=== PATIENT | female | born 1960 | race Caucasian/White ===

== ENCOUNTER 2016-07-07 15:37 | Emergency (ER) | payer MEDICARE ==
[2016-07-07 17:13] LABS: RED BLOOD COUNT 4.84 M/UL (4.00-5.10); WHITE BLOOD COUNT 11.2 K/UL (4.5-11.0)
[2016-07-07 17:32] LABS: BUN/CREATININE RATIO 10 (0-10)
== END 2016-07-07 22:00 | disposition home or self-care (01) ==
LOC: ER1 15:37
PROVIDERS: Physician Assistant
DX: K59.00 Constipation, unspecified (principal); E11.9 Type 2 diabetes mellitus without complications; J44.9 Chronic obstructive pulmonary disease, unspecified; I10 Essential (primary) hypertension; Z88.0 Allergy status to penicillin; Z88.2 Allergy status to sulfonamides; Z88.6 Allergy status to analgesic agent
CPT/HCPCS: 36415; 80053; 81001; 82150; 83605; 83690; 85025; 96360; 99284; J7050; Q9962

== ENCOUNTER → 2016-08-05 | Outpatient (CLI) | payer MEDICARE ==
[2016-08-05 14:06] LABS: HEMOGLOBIN 15.4 gm/dl (12.3-15.3); RED BLOOD COUNT 5.07 M/UL (4.00-5.10); WHITE BLOOD COUNT 8.6 K/UL (4.5-11.0)
[2016-08-05 14:28] LABS: BUN/CREATININE RATIO 11 (0-10)
== END ==
LOC: LAB 12:27
PROVIDERS: Family Medicine
DX: Z13.828 Encounter for screening for other musculoskeletal disorder (principal); E11.65 Type 2 diabetes mellitus with hyperglycemia; E78.5 Hyperlipidemia, unspecified; I10 Essential (primary) hypertension; K43.9 Ventral hernia without obstruction or gangrene; Z13.89 Encounter for screening for other disorder
CPT/HCPCS: 36415; 80053; 80061; 82043; 83036; 84439; 84443; 84550; 84681; 85027; 86039; 86200; 86431

== ENCOUNTER → 2016-08-18 | Outpatient (CLI) | payer MEDICARE | LOC: US 14:00 | DX: Z12.31 Encounter for screening mammogram for malignant neoplasm of breast (principal); I73.9 Peripheral vascular disease, unspecified; I74.3 Embolism and thrombosis of arteries of the lower extremities; Z78.0 Asymptomatic menopausal state; Z80.3 Family history of malignant neoplasm of breast | CPT/HCPCS: 93925; G0202 ==

== ENCOUNTER → 2020-03-06 | Outpatient (CLI) | payer OTHER ==
[~2020-03-06] MED LIST: AZITHROMYCIN250 MG PO; CILOSTAZOL50 MG PO; CLOPIDOGREL75 MG PO; COLACE 100MG C100 MG PO; CYCLOBENZAPRINE10 MG PO; ECOTRIN325 MG PO; FLONASE ALLER15.8 ML; ISOSORBIDE MONO30 MG PO; LIPITOR TAB 2020 MG PO; MIRALAX17 GM PO; MONTELUKAST SOD10 MG PO; NEURONTIN 100100 MG PO; NORCO 5-325 TA1 EACH PO; NYSTATIN15 GM TD; OMNICEF 300 MG300 MG PO; PANTOPRAZOLE SO40 MG PO; TIZANIDINE HCL2 MG PO; VENTOLIN/PROVE0.5 ML INH; ZESTRIL 40 MG T40 MG PO
== END ==
LOC: EXRD 03-02 14:00
DX: E04.1 Nontoxic single thyroid nodule (principal)
CPT/HCPCS: 76536

== ENCOUNTER → 2020-04-07 | Outpatient (CLI) | payer OTHER | LOC: KOH-I 13:25 | DX: S82.831K Other fracture of upper and lower end of right fibula, subsequent encounter for closed fracture with nonunion (principal); M79.89 Other specified soft tissue disorders; X58.XXXD Exposure to other specified factors, subsequent encounter | CPT/HCPCS: 73610 ==

== ENCOUNTER → 2020-04-27 | Outpatient (CLI) | payer OTHER | LOC: EXRD 15:15 | DX: I73.9 Peripheral vascular disease, unspecified (principal) | CPT/HCPCS: 93925 ==

== ENCOUNTER 2020-05-31 16:34 | Emergency (ER) | payer OTHER ==
[2020-05-31 17:56] LABS: HEMOGLOBIN 14.2 gm/dl (12.3-15.3); RED BLOOD COUNT 4.57 M/UL (4.00-5.10)
== END 2020-05-31 20:23 | disposition home or self-care (01) ==
LOC: ER1 16:34
PROVIDERS: Family Medicine
DX: R10.32 Left lower quadrant pain (principal); I10 Essential (primary) hypertension; J44.9 Chronic obstructive pulmonary disease, unspecified; E11.9 Type 2 diabetes mellitus without complications; F17.210 Nicotine dependence, cigarettes, uncomplicated; Z88.0 Allergy status to penicillin; Z79.899 Other long term (current) drug therapy; Z88.8 Allergy status to other drugs, medicaments and biological substances
CPT/HCPCS: 80053; 81001; 83690; 85025; 99284

== ENCOUNTER → 2021-05-24 | Outpatient (CLI) | payer OTHER | LOC: KOH-I 11:55 | DX: M54.2 Cervicalgia (principal); M47.812 Spondylosis without myelopathy or radiculopathy, cervical region | CPT/HCPCS: 72040 ==

== ENCOUNTER → 2021-08-05 | Outpatient (CLI) | payer OTHER ==
[2021-08-05 14:49] LABS: HEMOGLOBIN 14.6 gm/dl (12.3-15.3); RED BLOOD COUNT 4.78 M/UL (4.00-5.10)
[2021-08-05 15:00] LABS: BUN/CREATININE RATIO 10 (0-10)
[2021-08-06 07:12] LABS: VITAMIN D, 25-HYDROXY 44.9 ng/mL (30.0-100.0)
[2021-08-06 11:14] LABS: RHEUMATOID ARTHRITIS FACTOR <10.0 IU/mL (<14.0)
[2021-08-06 13:10] LABS: RNP ANTIBODIES 0.5 AI (0.0-0.9); SMITH ANTIBODIES <0.2 AI (0.0-0.9)
== END ==
LOC: RAD 13:34
PROVIDERS: Nurse Practitioner Family
DX: M25.551 Pain in right hip (principal); I10 Essential (primary) hypertension; E53.8 Deficiency of other specified B group vitamins; R79.89 Other specified abnormal findings of blood chemistry
CPT/HCPCS: 36415; 73502; 80053; 80061; 82607; 84439; 84443; 85025; 85652; 86038; 86140; 86200; 86431

== ENCOUNTER → 2021-09-06 | Outpatient (CLI) | payer OTHER | LOC: EXRD 14:30 | DX: E04.1 Nontoxic single thyroid nodule (principal); M81.0 Age-related osteoporosis without current pathological fracture | CPT/HCPCS: 76536; 77080 ==

== ENCOUNTER → 2021-09-15 | Outpatient (CLI) | payer OTHER | LOC: MAMO 14:00 | DX: Z12.31 Encounter for screening mammogram for malignant neoplasm of breast (principal) | CPT/HCPCS: 77063; 77067 ==